=== PATIENT | female | born 1940 | race Hispanic/Latino ===

== ENCOUNTER → 2018-01-22 | Outpatient (CLI) | payer OTHER ==
[~2018-01-22] MED LIST: ACET-66 PO; AMLO1CAP12 PO; CITA10SO PO; FENO160T16 PO; VIT D PO
== END | disposition home or self-care (01) ==
LOC: RAH 08:35
PROVIDERS: ATTEND Internal Medicine
DX: Z12.31 Encounter for screening mammogram for malignant neoplasm of breast (principal)
CPT/HCPCS: 77067

== ENCOUNTER → 2018-10-18 | Outpatient (CLI) | payer OTHER | END | disposition home or self-care (01) | LOC: RAH 16:11 | PROVIDERS: ATTEND Internal Medicine | DX: M47.896 Other spondylosis, lumbar region (principal); I70.0 Atherosclerosis of aorta; M25.561 Pain in right knee | CPT/HCPCS: 72100; 73502 ==

== ENCOUNTER → 2020-02-28 | Outpatient (CLI) | payer OTHER ==
[~2020-02-28] MED LIST changes: +AMLO-104 PO; -AMLO1CAP12 PO
== END | disposition home or self-care (01) ==
LOC: RAH 10:50
PROVIDERS: ATTEND Internal Medicine Gastroenterology
DX: R10.9 Unspecified abdominal pain (principal); R11.0 Nausea
CPT/HCPCS: 78264; A9541

== ENCOUNTER → 2021-02-06 | Outpatient (CLI) | payer OTHER | END | disposition home or self-care (01) | LOC: RAH 09:07 | PROVIDERS: ATTEND Internal Medicine | DX: I71.4 Abdominal aortic aneurysm, without rupture (principal) | CPT/HCPCS: 76700 ==

== ENCOUNTER → 2021-12-18 | Outpatient (CLI) | payer OTHER | END | disposition home or self-care (01) | LOC: RAH 15:55 | PROVIDERS: ATTEND Nurse Practitioner Family | DX: M19.012 Primary osteoarthritis, left shoulder (principal); M85.812 Other specified disorders of bone density and structure, left shoulder; M79.89 Other specified soft tissue disorders | CPT/HCPCS: 73030 ==

== ENCOUNTER → 2022-03-06 | Outpatient (CLI) | payer OTHER | END | disposition home or self-care (01) | LOC: RAH 10:32 | PROVIDERS: ATTEND Internal Medicine | DX: N13.30 Unspecified hydronephrosis (principal); N28.1 Cyst of kidney, acquired; R33.8 Other retention of urine | CPT/HCPCS: 76770 ==

== ENCOUNTER → 2022-04-29 | Outpatient (CLI) | payer OTHER ==
[~2022-04-29] MED LIST changes: +ACET-2893 PO; +AEC81 PO; +AMLO1CAP87 PO; +ASCO500V11 IJ; +ATOR40TA69 PO; +CLOP75TA14 PO; +CYAN500T46 PO; +FERR159T2 PO; +SOLI5TAB6 PO; +VITA100C26 PO; +ZINC11TA PO
== END | disposition home or self-care (01) ==
LOC: RAH 10:58
PROVIDERS: ATTEND Internal Medicine
DX: N64.4 Mastodynia (principal); R92.1 Mammographic calcification found on diagnostic imaging of breast
CPT/HCPCS: 77066

== ENCOUNTER 2022-05-04 12:34 | Observation (INO) | payer OTHER ==
[~2022-05-04] VITALS: Ht 154.9 cm; Wt 52.4 kg
[~2022-05-04 12:34] MED LIST changes: -ACET-2893 PO; -AEC81 PO; -AMLO1CAP87 PO; -ASCO500V11 IJ; -ATOR40TA69 PO; -CLOP75TA14 PO; -CYAN500T46 PO; -FERR159T2 PO; -SOLI5TAB6 PO; -VITA100C26 PO; -ZINC11TA PO
[2022-05-04 13:00] LABS: BASOPHILS % (AUTO) 0.5 % (0.0-5.0); EOSINOPHILS % (AUTO) 0.3 % (0.0-8.0); HEMATOCRIT 38.3 % (36-48); LYMPHOCYTES % (AUTO) 24.7 % (21.0-51.0); MEAN CORPUSCULAR HEMOGLOBIN 29.3 pg (27.0-33.0); MEAN CORPUSCULAR HGB CONC 32.6 g/dL (32.0-36.0); MEAN CORPUSCULAR VOLUME 89.9 fL (79-99); MONOCYTES % (AUTO) 7.7 % (3.0-13.0); NEUTROPHILS % (AUTO) 66.5 % (40.0-77.0); PLATELET COUNT (AUTO) 249 K/uL (130-400); RED BLOOD CELL COUNT(AUTO) 4.26 MIL/uL (4.00-5.50); WHITE BLOOD COUNT (AUTO) 6.2 K/uL (4.8-10.8)
[2022-05-04 13:07] LABS: CREATININE 0.9 mg/dL (0.5-1.5); POTASSIUM 4.1 mmol/L (3.5-5.1)
[2022-05-04 13:11] LABS: ALBUMIN 4.2 g/dL (3.5-5.0); TOTAL PROTEIN, SERUM 8.6 g/dL (6.0-8.3)
[2022-05-04 13:13] LABS: INR 0.94 (0.85-1.15); PROTHROMBIN TIME 10.3 SEC (9.6-11.6)
[2022-05-04 13:14] LABS: PARTIAL THROMBOPLASTIN TIME 27.4 SEC (26.3-35.5)
[2022-05-04 13:17] LABS: APPEARANCE,URINE CLEAR (CLEAR); BILIRUBIN,URINE NEGATIVE (NEGATIVE); COLOR,URINE YELLOW (YELLOW); GLUCOSE, URINE (UA) NEGATIVE (NEGATIVE); KETONES,URINE NEGATIVE (NEGATIVE); LEUKOCYTE ESTERASE ,URINE NEGATIVE (NEGATIVE); NITRATE,URINE NEGATIVE (NEGATIVE); OCCULT BLOOD,URINE SMALL (NEGATIVE); PH,URINE 5.5 (5.0-8.0); PROTEIN,URINE NEGATIVE (NEGATIVE); UROBILINOGEN,URINE 0.2 mg/dL (0.2-1.0)
[2022-05-04 13:26] LABS: BACTERIA,URINE Rare /HPF (None Seen); WBC,URINE None Seen /HPF (0-1)
[2022-05-04 13:29] LABS: B-TYPE NATRIURETIC PEPTIDE 237 pg/mL (0-100)
[2022-05-04] MEDS ORDERED: HYDRALAZINE 20MG/ML VIAL IV PRN (15:30)
[2022-05-04] MEDS ORDERED: DEXTROSE 5 % AND 0.9 % NACL 1,000 ML IV SCH (15:30)
[2022-05-04] MEDS: PANTOPRAZOLE 40 MG/VIAL IVP SCH (15:49)
[2022-05-04 15:54] LABS: HEMOGLOBIN A1C 5.7 % (4.0-6.0)
[2022-05-04] MEDS ORDERED: IOHEXOL 350 MG/ML 100ML INFUS..BTL IV ONE (16:28)
[2022-05-04] MEDS ORDERED: ACET-2893 PO (16:43)
[2022-05-04] MEDS ORDERED: AMLO1CAP87 PO (16:47)
[2022-05-04] MEDS ORDERED: SOLI5TAB6 PO (16:47)
[2022-05-04] MEDS ORDERED: FERR159T2 PO (16:50)
[2022-05-04] MEDS ORDERED: CYAN500T46 PO (16:50)
[2022-05-04] MEDS ORDERED: ASCO500V11 IJ (16:50)
[2022-05-04] MEDS ORDERED: ZINC11TA PO (16:50)
[2022-05-04] MEDS ORDERED: VITA100C26 PO (16:50)
[2022-05-04] MEDS ORDERED: ASPIRIN 81MG CHEW TAB PO ONE (17:00)
[2022-05-04] MEDS ORDERED: ACETAMINOPHEN 325 MG TAB PO PRN (19:00)
[2022-05-04] MEDS: CITALOPRAM 20 MG TABLET PO SCH (20:58)
[2022-05-04] MEDS: OXYBUTYNIN CHLORIDE 5 MG TABLET PO SCH (20:58)
[2022-05-05 05:33] LABS: BASOPHILS % (AUTO) 0.6 % (0.0-5.0); EOSINOPHILS % (AUTO) 0.9 % (0.0-8.0); HEMATOCRIT 33.8 % (36-48); LYMPHOCYTES % (AUTO) 27.6 % (21.0-51.0); MEAN CORPUSCULAR HEMOGLOBIN 29.3 pg (27.0-33.0); MEAN CORPUSCULAR HGB CONC 32.5 g/dL (32.0-36.0); MEAN CORPUSCULAR VOLUME 90.1 fL (79-99); MONOCYTES % (AUTO) 11.6 % (3.0-13.0); NEUTROPHILS % (AUTO) 59.1 % (40.0-77.0); PLATELET COUNT (AUTO) 221 K/uL (130-400); RED BLOOD CELL COUNT(AUTO) 3.75 MIL/uL (4.00-5.50); RED CELL DISTRIBUTION WIDTH 13.2 % (11.0-15.5); WHITE BLOOD COUNT (AUTO) 4.6 K/uL (4.8-10.8)
[2022-05-05 05:47] LABS: ALBUMIN 3.2 g/dL (3.5-5.0); CREATININE 0.8 mg/dL (0.5-1.5); MAGNESIUM 2.1 mg/dL (1.80-2.40); POTASSIUM 4.3 mmol/L (3.5-5.1); TOTAL PROTEIN, SERUM 6.9 g/dL (6.0-8.3)
[2022-05-05] MEDS: ZINC CITRATE PO SCH (08:24)
[2022-05-05] MEDS: FERROUS SULFATE 27 MG PO SCH (08:24)
[2022-05-05] MEDS: VITAMIN E 45 MG PO SCH (08:24)
[2022-05-05] MEDS: OXYBUTYNIN CHLORIDE 5 MG TABLET PO SCH ×2 (08:24→20:30)
[2022-05-05] MEDS: Vitamin B Complex/Vit C/Folic Acid PO SCH (08:24)
[2022-05-05] MEDS: CYANOCOBALAMIN (VITAMIN B-12) 1,000 MCG TABLET PO SCH (08:25)
[2022-05-05] MEDS ORDERED: Vitamin B Complex/Vit C/Folic Acid PO SCH (09:00)
[2022-05-05 12:22] VITALS: BP 131/85
[2022-05-05] MEDS: ASPIRIN 81 MG EC TAB PO SCH (14:50)
[2022-05-05] MEDS: PANTOPRAZOLE 40 MG/VIAL IVP SCH (14:51)
[2022-05-05 15:35] VITALS: BP 138/63
[2022-05-05] MEDS: FAMOTIDINE 20MG TAB PO SCH (16:36)
[2022-05-05] MEDS: ACETAMINOPHEN 325 MG TAB PO PRN (19:41)
[2022-05-05 19:54] VITALS: BP 137/59
[2022-05-05] MEDS: CITALOPRAM 20 MG TABLET PO SCH (20:29)
[2022-05-05 23:00] VITALS: BP 132/75
[2022-05-06 04:56] VITALS: BP 121/56
[2022-05-06 06:28] LABS: BASOPHILS % (AUTO) 0.4 % (0.0-5.0); EOSINOPHILS % (AUTO) 0.8 % (0.0-8.0); HEMATOCRIT 32.8 % (36-48); LYMPHOCYTES % (AUTO) 26.7 % (21.0-51.0); MEAN CORPUSCULAR HEMOGLOBIN 28.8 pg (27.0-33.0); MEAN CORPUSCULAR VOLUME 89.9 fL (79-99); MONOCYTES % (AUTO) 9.1 % (3.0-13.0); NEUTROPHILS % (AUTO) 62.6 % (40.0-77.0); PLATELET COUNT (AUTO) 218 K/uL (130-400); RED BLOOD CELL COUNT(AUTO) 3.65 MIL/uL (4.00-5.50); RED CELL DISTRIBUTION WIDTH 12.8 % (11.0-15.5); WHITE BLOOD COUNT (AUTO) 5.3 K/uL (4.8-10.8)
[2022-05-06 06:45] LABS: ALBUMIN 3.1 g/dL (3.5-5.0); CREATININE 0.9 mg/dL (0.5-1.5); MAGNESIUM 2.2 mg/dL (1.80-2.40); POTASSIUM 3.8 mmol/L (3.5-5.1); TOTAL PROTEIN, SERUM 6.8 g/dL (6.0-8.3)
[2022-05-06 08:10] VITALS: BP 125/58
[2022-05-06] MEDS ORDERED: CLOPIDOGREL 75MG TAB PO SCH (09:00)
[2022-05-06] MEDS ORDERED: ATORVASTATIN 40 MG TABLET PO SCH (09:00)
[2022-05-06] MEDS ORDERED: KCL 20 MEQ ERTAB PO PRN (10:00)
[2022-05-06] MEDS ORDERED: POTASSIUM CHLORIDE 10% ELIXIR 20 MEQ/15 ML UDCUP PO PRN (10:00)
[2022-05-06] MEDS ORDERED: POTASSIUM CHLORIDE 20MEQ/100ML 100 ML IV PRN (10:00)
[2022-05-06] MEDS ORDERED: LIDOCAINE HCL-MPF 1% 2ML VIAL IV PRN (10:00)
[2022-05-06] MEDS: ASPIRIN 81 MG EC TAB PO SCH (10:09)
[2022-05-06] MEDS: ACETAMINOPHEN 325 MG TAB PO PRN (10:10)
[2022-05-06] MEDS: OXYBUTYNIN CHLORIDE 5 MG TABLET PO SCH (10:10)
[2022-05-06] MEDS: Vitamin B Complex/Vit C/Folic Acid PO SCH (10:11)
[2022-05-06] MEDS: CYANOCOBALAMIN (VITAMIN B-12) 1,000 MCG TABLET PO SCH (10:11)
[2022-05-06] MEDS: FAMOTIDINE 20MG TAB PO SCH (10:11)
[2022-05-06] MEDS: VITAMIN E 45 MG PO SCH (10:14)
[2022-05-06] MEDS: ZINC CITRATE PO SCH (10:15)
[2022-05-06] MEDS: FERROUS SULFATE 27 MG PO SCH (10:15)
[2022-05-06 11:16] VITALS: BP 135/57
[2022-05-06] MEDS ORDERED: CLOP75TA14 PO (11:20)
[2022-05-06] MEDS ORDERED: AEC81 PO (11:20)
[2022-05-06] MEDS ORDERED: ATOR40TA69 PO (11:20)
== END 2022-05-06 12:45 | disposition home or self-care (01) ==
LOC: EDH 12:34 → INTOOBSV 15:15 → EDHIP 15:15 → 2DH 05-05 12:11
PROVIDERS: ADMIT Internal Medicine; ATTEND Internal Medicine
DX: I63.9 Cerebral infarction, unspecified (principal); Z20.822 Contact with and (suspected) exposure to COVID-19; G45.9 Transient cerebral ischemic attack, unspecified; R29.702 NIHSS score 2; I10 Essential (primary) hypertension; G43.909 Migraine, unspecified, not intractable, without status migrainosus; J69.0 Pneumonitis due to inhalation of food and vomit; E78.00 Pure hypercholesterolemia, unspecified; R42 Dizziness and giddiness; G51.0 Bell's palsy; M06.9 Rheumatoid arthritis, unspecified; M19.90 Unspecified osteoarthritis, unspecified site; Z79.899 Other long term (current) drug therapy; Z86.73 Personal history of transient ischemic attack (TIA), and cerebral infarction without residual deficits; Z98.890 Other specified postprocedural states
CPT/HCPCS: 96374; 96361 ×2; 99285; 83036; 84443; 82550; 83721; 84484; 80053 ×3; 83880; 85025 ×3; 85610; 85730; 85651; 87804 ×2; 82948; 82607; 82746; 86140; 81001; 36415 ×3; 87635; 71045; 70450; 70496; 70498; 70551; 93005; 84145; 96376; 83735 ×2; 74230; 93306; 93356; 92522; 92610; 92611; 97161; C9113 ×2; Q9967; G0378 ×2

== ENCOUNTER 2022-07-02 20:31 | Emergency (ER) | payer OTHER ==
[~2022-07-02] VITALS: Ht 154.9 cm; Wt 54.9 kg
[~2022-07-02 20:31] MED LIST changes: +ACET-2893 PO; -ACET-66 PO; +AEC81 PO; -AMLO-104 PO; +AMLO1CAP87 PO; +ASCO500V11 IJ; +ATOR40TA69 PO; +CLOP75TA14 PO; +CYAN500T46 PO; -FENO160T16 PO; +FERR159T2 PO; +SOLI5TAB6 PO; -VIT D PO; +VITA100C26 PO; +ZINC11TA PO
[2022-07-02 21:32] LABS: BASOPHILS % (AUTO) 0.4 % (0.0-5.0); EOSINOPHILS % (AUTO) 0.6 % (0.0-8.0); HEMATOCRIT 33.1 % (36-48); MEAN CORPUSCULAR HEMOGLOBIN 29.9 pg (27.0-33.0); MEAN CORPUSCULAR HGB CONC 33.5 g/dL (32.0-36.0); MEAN CORPUSCULAR VOLUME 89.2 fL (79-99); MONOCYTES % (AUTO) 8.1 % (3.0-13.0); NEUTROPHILS % (AUTO) 59.5 % (40.0-77.0); PLATELET COUNT (AUTO) 214 K/uL (130-400); RED BLOOD CELL COUNT(AUTO) 3.71 MIL/uL (4.00-5.50); RED CELL DISTRIBUTION WIDTH 12.8 % (11.0-15.5); WHITE BLOOD COUNT (AUTO) 5.2 K/uL (4.8-10.8)
[2022-07-02 21:44] LABS: CREATININE 0.9 mg/dL (0.5-1.5); POTASSIUM 4.3 mmol/L (3.5-5.1)
[2022-07-02 21:49] LABS: ALBUMIN 3.8 g/dL (3.5-5.0); TOTAL PROTEIN, SERUM 7.8 g/dL (6.0-8.3)
[2022-07-02] MEDS ORDERED: MAGNESIUM CITRATE 296 ML SOLUTION ONE (23:44)
[2022-07-02 23:54] LABS: APPEARANCE,URINE CLEAR (CLEAR); BILIRUBIN,URINE NEGATIVE (NEGATIVE); COLOR,URINE YELLOW (YELLOW); GLUCOSE, URINE (UA) NEGATIVE (NEGATIVE); KETONES,URINE NEGATIVE (NEGATIVE); LEUKOCYTE ESTERASE ,URINE NEGATIVE (NEGATIVE); NITRATE,URINE NEGATIVE (NEGATIVE); OCCULT BLOOD,URINE SMALL (NEGATIVE); PROTEIN,URINE NEGATIVE (NEGATIVE); UROBILINOGEN,URINE 0.2 mg/dL (0.2-1.0)
[2022-07-02 23:59] VITALS: BP 151/73
[2022-07-03 00:16] LABS: BACTERIA,URINE None Seen /HPF (None Seen); RBC,URINE 0-1 /HPF (0-1); SQUAMOUS EPITHELIAL CELL,UR Rare /HPF (0-2); WBC,URINE None Seen /HPF (0-1)
== END 2022-07-03 00:05 | disposition home or self-care (01) ==
LOC: EDH 20:31
DX: K59.00 Constipation, unspecified (principal); E78.00 Pure hypercholesterolemia, unspecified; I10 Essential (primary) hypertension; M81.0 Age-related osteoporosis without current pathological fracture; M19.90 Unspecified osteoarthritis, unspecified site
CPT/HCPCS: 36415; 74176; 80053; 81001; 83690; 85025

== ENCOUNTER → 2023-07-16 | Outpatient (CLI) | payer MEDICARE ==
[~2023-07-16] MED LIST changes: +CLOP-31 PO; -CLOP75TA14 PO
== END | disposition home or self-care (01) ==
LOC: RAH 11:03
PROVIDERS: ATTEND Internal Medicine
DX: Z12.31 Encounter for screening mammogram for malignant neoplasm of breast (principal)
CPT/HCPCS: 77067

== ENCOUNTER → 2023-12-31 | Outpatient (CLI) | payer MEDICARE | END | disposition home or self-care (01) | LOC: RAH 11:12 | PROVIDERS: ATTEND Internal Medicine | DX: N64.4 Mastodynia (principal); R92.333 Mammographic heterogeneous density, bilateral breasts | CPT/HCPCS: 77066 ==

== ENCOUNTER → 2024-03-23 | Outpatient (CLI) | payer MEDICARE | END | disposition home or self-care (01) | LOC: SHCH 14:59 | PROVIDERS: ATTEND Internal Medicine Cardiovascular Disease | DX: I08.3 Combined rheumatic disorders of mitral, aortic and tricuspid valves (principal); R07.9 Chest pain, unspecified; R01.1 Cardiac murmur, unspecified; I20.9 Angina pectoris, unspecified | CPT/HCPCS: 93306; 93356 ==

== ENCOUNTER → 2024-04-13 | Outpatient (CLI) | payer MEDICARE ==
[2024-04-13 14:32] LABS: CREATININE 1.2 mg/dL (0.5-1.0)
== END | disposition home or self-care (01) ==
LOC: LAB 13:23
PROVIDERS: ATTEND Nurse Practitioner
DX: H90.5 Unspecified sensorineural hearing loss (principal)
CPT/HCPCS: 36415; 82565; 84520

== ENCOUNTER → 2024-05-10 | Outpatient (CLI) | payer MEDICARE ==
[~2024-05-10] MED LIST changes: +GADOTERATE MEGLUMINE 10 MMOL/20 ML VIAL IV ONE
== END | disposition home or self-care (01) ==
LOC: RAH 10:39
PROVIDERS: ATTEND Orthopaedic Surgery
DX: H90.5 Unspecified sensorineural hearing loss (principal)
CPT/HCPCS: 70553; A9575

== ENCOUNTER 2025-08-03 14:51 | Emergency (ER) | payer OTHER ==
[~2025-08-03] VITALS: Ht 154.9 cm; Wt 50.8 kg
[~2025-08-03 14:51] MED LIST changes: -ACET-2893 PO; +ACET-3797 PO; -GADOTERATE MEGLUMINE 10 MMOL/20 ML VIAL IV ONE
--- NOTE | 2025-08-03 15:03 | ERN ---
ED Note History of Present Illness Stated Complaint: CHEST PAIN Chief Complaint: Chest Pain Time Seen by MD: 14:54 Dictation: PATIENT IS AN 84-YEAR-OLD FEMALE HERE WITH COMPLAINTS OF LEFT LATERAL CHEST WALL PAIN THAT RADIATES TO THE SUBSTERNAL AREA OF HER CHEST ONSET FOR A LONG TIME. SHE HAS NO NAUSEA NO VOMITING NO JAW PAIN NO ARM PAIN NO BACK PAIN. SHE STATES SHE WAS SUPPOSED TO HAVE A STRESS TEST LAST YEAR BY DR. GARDNER HOWEVER WAS TOO SCARED OF THE CONTRAST. SHE IS ALSO SCHEDULED FOR FUTURE CT OF HER CHEST HOWEVER SHE OPTED TO COME IN TODAY FOR FURTHER EXAMINATION AND TREATMENT. Allergies: Coded Allergies: codeine (Verified Adverse Reaction, Unknown, NAUSEA/VOMITING, 05/04/22) Home Meds Active Scripts Clopidogrel Bisulfate (Plavix) 75 Mg Tablet, 75 MG PO DAILY for 21 Days, #21 TAB Prov:TERESITA CADET NP 05/06/22 Atorvastatin Calcium (LIPITOR) 40 Mg Tablet, 40 MG PO DAILY for 30 Days, #30 TAB Prov:TERESITA CADET NP 05/06/22 Aspirin (ASPIRIN 81 MG ECTAB) 81 Mg Ectab, 81 MG PO DAILY for 30 Days, #30 TAB.EC Prov:TERESITA CADET NP 05/06/22 Reported Medications Ferrous Sulfate, Dried (Iron) 159 Mg Tablet.er, 27 MG PO DAILY, TAB 05/04/22 Zinc Citrate (Zinc) 11 Mg Tab.chew, 40 MG PO DAILY, TAB.CHEW 05/04/22 Cyanocobalamin (Vitamin B-12) (B-12) 500 Mcg Tablet, 500 MCG PO DAILY, TAB 05/04/22 Vitamin E (Dl,Tocopheryl Acet) (Vitamin E) 45 Mg Capsule, 45 MG PO DAILY, CAP 05/04/22 Ascorbic Acid (Ascorbic Acid) 500 Mg/1 Ml Vial, 1000 MG IJ DAILY, VIAL 05/04/22 Solifenacin Succinate (Solifenacin Succinate) 5 Mg Tablet, 5 MG PO DAILY, TAB 05/04/22 Amlodipine Besylate/Benazepril (Amlodipine-Benazepril 2.5-10) 1 Each Capsule, 1 EACH PO DAILY, CAP 05/04/22 Acetaminophen (Acetaminophen ER) 650 Mg Tablet.er, 650 MG PO Q4PRN PRN for PAIN LEVEL 1 TO 3, TAB 6/26/22 Citalopram Hydrobromide (Citalopram HBr) 10 Mg/5 Ml Solution, 10 MG PO HS, ML 01/16/17 Past Medical History Past Medical History: Arthritis, High Cholesterol, Hypertension Additional Past Medical Hx: OSTEOPOROSIS Surgical History: None History: Not Applicable RN Note Reviewed/Agreed w/PFSH: Yes Review of System Dictation CONSTITUTIONAL: NEGATIVE EXCEPT FOR HPI HEAD/FACE: NEGATIVE EXCEPT FOR HPI EENT: NEGATIVE EXCEPT FOR HPI RESPIRATORY: NEGATIVE EXCEPT FOR HPI CHRONIC LEFT CHEST PAIN THAT RADIATES SUBSTERNALLY GASTROINTESTINAL/ABDOMINAL: NEGATIVE EXCEPT FOR HPI GENITOURINARY: NEGATIVE EXCEPT FOR HPI MUSCULOSKELETAL: NEGATIVE EXCEPT FOR HPI INTEGUMENTARY: NEGATIVE EXCEPT FOR HPI NEUROLOGICAL/PSYCH: NEGATIVE EXCEPT FOR HPI HEMATOLOGIC/LYMPHATIC: NEGATIVE EXCEPT FOR HPI ALL SYSTEMS NEGATIVE, EXCEPT NOTED ABOVE. 13 POINT REVIEW OF SYSTEMS ASSESSED AND ALL NEGATIVE EXCEPT FOR ABOVE. Initial Vital Sign VS Vital Signs Date Time Temp Pulse Resp B/P (MAP) Pulse Ox O2 Delivery O2 Flow Rate FiO2 08/03/25 14:53 98.1 72 16 161/55 98 Room Air 0 08/03/25 15:44 21 Physical Exam Dictation VITAL SIGNS REVIEWED GENERAL APPEARANCE: ALERT, ORIENTED X 3, MILD/DEBILITATED HEAD AND FACE: NON-TRAUMATIC. EYES: PERRL, PINK CONJUNCTIVAS, EYELID NO TRAUMA, ANTERIOR CHAMBER WITH ARCUS SENILIS. EARS: PINNAS INTACT AND NO SIGNS OF TRAUMA OR ERYTHEMA EAR CANALS CLEAR AND NO DISCHARGE TM NO ERYTHEMA NOSE: NO DISCHARGE, NO BLEEDING. OROPHARYNX: MOUTH NORMAL, TONGUE PINK, PHARYNX CLEAR,NO ERYTHEMA, TONSILS NO EXUDATES, NO ABSCESSES NOTED, MUCOUS MEMBRANE MOIST NECK: SUPPLE, NON-TENDER, NO THYROMEGALY, NO MASSES, NO JVD, NO BRUITS BREAST:DEFERRED CHEST: LEFT LATERAL CHEST WALL TENDERNESS WITH PALPATION TENDERNESS, NO CREPITU S, NO PARADOXICAL MOVEMENT, NO RETRACTIONS LUNGS:CLEAR, WELL-VENTILATED, SYMMETRIC, NO RALES, NO WHEEZING, NO RHONCHI, NO STRIDOR, GOOD BREATH SOUNDS BILATERALLY HEART: REGULAR RATE, REGULAR RHYTHM, NO MURMUR, NO GALLOPS VASCULAR: NO PERIPHERAL EDEMA, ABDOMEN: SOFT, POSITIVE BOWEL SOUNDS, NONDISTENDED, NO GUARDING, NONTENDER, NO REBOUND, NO MASSES NO HEPATOMEGALY, NO SPLENOMEGALY, NO SMITH'S SIGN, NO HERNIAS. RECTAL: DEFERRED GENITAL: DEFERRED NEUROLOGICAL: NORMAL SPEECH, MOTOR FUNCTION INTACT, SENSORY FUNCTION INTACT MUSCULOSKELETAL: NECK NONTENDER, FULL RANGE OF MOTION, BACK NONTENDER, FULL RANGE OF MOTION, EXTREMITIES: NONTENDER, FULL RANGE OF MOTION SKIN: COLOR PINK, DRY, NO TURGOR, NO RASH, NO LACERATIONS, NO ABRASIONS, NO CONTUSIONS. LYMPHATIC: DEFERRED Results (Laboratory/Radiology) Laboratory/Radiology Laboratory Tests Test 08/03/25 15:00 08/03/25 15:22 08/03/25 17:31 Urine Color LIGHT-YELLOW (YELLOW) Urine Appearance CLEAR (CLEAR) Urine pH 5.0 (5.0-8.0) Urine Specific [place] 1.012 (1.001-1.031) Urine Protein NEGATIVE mg/dL (NEGATIVE) Urine Glucose (UA) NEGATIVE mg/dL (NEGATIVE) Urine Ketones NEGATIVE mg/dL (NEGATIVE) Urine Occult Blood SMALL (NEGATIVE) H Urine Nitrate NEGATIVE (NEGATIVE) Urine Bilirubin NEGATIVE mg/dL (NEGATIVE) Urine Urobilinogen 0.2 mg/dL (0.2-1.0) Urine Leukocyte Esterase NEGATIVE Marguerite/uL Urine RBC 6-10 /HPF (0-1) H Urine WBC 0-1 /HPF (0-1) Urine Squamous Epithelial Cells RARE /HPF (0-2) Urine Bacteria RARE /HPF (None Seen) Urine Hyaline Casts 0-1 /LPF (0-1 /LPF) White Blood Count 6.3 K/uL (4.8-10.8) Red Blood Count 3.51 MIL/uL (4.00-5.50) L Hemoglobin 10.6 g/dL (12.0-16.0) L Hematocrit 31.7 % (36-48) L Mean Corpuscular Volume 90.3 fL (79-99) Mean Corpuscular Hemoglobin 30.2 pg (27.0-33.0) Mean Corpuscular Hemoglobin Concent 33.4 g/dL (32.0-36.0) Red Cell Distribution Width 14.4 % (11.0-15.5) Platelet Count 168 K/uL (130-400) Mean Platelet Volume 9.6 fL (7.5-10.5) Immature Granulocyte % (Auto) 0.3 % (0-1) Neutrophils (%) (Auto) 74.0 % (40.0-77.0) Lymphocytes (%) (Auto) 19.2 % (21.0-51.0) L Monocytes (%) (Auto) 6.0 % (3.0-13.0) Eosinophils (%) (Auto) 0.2 % (0.0-8.0) Basophils (%) (Auto) 0.3 % (0.0-5.0) Neutrophils # (Auto) 4.7 K/uL (1.8-7.7) Lymphocytes # (Auto) 1.2 K/uL (1.0-4.8) Monocytes # (Auto) 0.4 K/uL (0.1-1.0) Eosinophils # (Auto) 0.01 K/uL (0.00-0.70) Basophils # (Auto) 0.02 K/uL (0.00-0.20) Absolute Immature Granulocyte (auto 0.02 K/uL (0-1) Nucleated Red Blood Cells 0.0 % (0.0-0.19) Sodium Level 135 mmol/L (136-145) L Potassium Level 3.8 mmol/L (3.5-5.1) Chloride Level 102 mmol/L (101-111) Carbon Dioxide Level 24 mmol/L (21-32) Blood Urea Nitrogen 35 mg/dL (7-18) H Creatinine 1.1 mg/dL (0.5-1.0) H Glomerular Filtration Rate Calc 49 mL/min (>90) Random Glucose 101 mg/dL (70-105) Total Calcium 8.8 mg/dL (8.5-10.1) Troponin I High Sensitivity 7 ng/L (4-50) 7 ng/L (4-50) CHEST 1VW REASON: CHEST PAIN COMPARISON: Prior chest from 05/04/2022 is available. FINDINGS: Single view of the chest was obtained. Lungs are clear. Heart size is normal. There is uncoiling atherosclerotic change of thoracic aorta. There is no pulmonary vascular congestion. Mediastinum and bony thorax appear unremarkable. IMPRESSION: 1. Unchanged from prior study with no evidence of airspace consolidation or pulmonary venous congestion.. Labs Reviewed?: Yes EKG: (+) NSR EKG Comment: EKG NORMAL SINUS RHYTHM/HEART RATE 71/AXIS NORMAL/NO ECTOPY 1845/SECOND EKG NORMAL SINUS RHYTHM/HEART RATE 60/AXIS NORMAL/NO ECTOPY REPEAT HIGH SENSITIVITY TROPONIN IS SEVEN. HEART SCORE IS THREE ED Course ED Course Orders Procedure Category Date Status Time Vital Signs Per CPOE 08/03/25 Transmitted Routine 14:55 Chest 1vw RAD 08/03/25 Resulted 14:55 12 Lead Ekg Tracing- EKG 08/03/25 Complete Technical 14:55 Oxygen By Nc/Pulse Ox CPOE 08/03/25 Transmitted 14:55 Maintain Iv CPOE 08/03/25 Transmitted 14:55 Iv Insertion CPOE 08/03/25 Transmitted 14:55 Cardiac Monitoring CPOE 08/03/25 Transmitted 14:55 Pulse Oximetry With CPOE 08/03/25 Transmitted Vs And Prn 14:55 Cbc With Differential LAB 08/03/25 Complete 14:55 Activity: Br W/Brp CPOE 08/03/25 Transmitted With Assist 14:55 Troponin I High LAB 08/03/25 Complete Sensitivity 14:55 Urinalysis Profile LAB 08/03/25 Complete 14:55 Basic Metabolic Panel LAB 08/03/25 Complete 14:55 Aspirin 325mg Tab PHA 08/03/25 Complete (Aspirin 325mg Tab) 15:00 12 Lead Ekg Tracing- EKG 08/03/25 Logged Technical 17:06 Troponin I High LAB 08/03/25 Complete Sensitivity 17:06 Current Medications Medications (Trade) Dose Ordered Sig/Kunal Route PRN Reason Start Time Stop Time Status Last Admin Dose Admin Aspirin (Aspirin 325mg Tab) 325 mg ONCE ONCE PO 08/03/25 15:00 08/03/25 15:03 DC 08/03/25 15:34 Vital Signs Date Time Temp Pulse Resp B/P (MAP) Pulse Ox O2 Delivery O2 Flow Rate FiO2 08/03/25 15:44 98.4 64 24 146/60 100 Room Air* 0 21 08/03/25 14:53 98.1 72 16 161/55 98 Room Air 0 1845/NO PAIN AT THIS TIME. PATIENT WE WILL BE DISCHARGED HOME TO FOLLOW UP WITH HER PRIMARY CARE DOCTOR. HEART Score Response (Comments) Value History: Low suspicion (0) 0 Age: > 65yrs (+2) 2 Risk Factors: 1-2 risk factors (+1) 1 Initial Troponin: Normal limit (0) 0 Total 3 Medical Decision Making MDM MDM: DIFFERENTIAL DIAGNOSIS: ACS/AMI/ELECTROLYTE IMBALANCE/DEHYDRATION/PNEUMONIA/BRONCHITIS/ATYPICAL CHEST PAIN RATIONALE: TESTS CONSIDERED AND ORDERED SECONDARY TO SHARED DECISION MAKING INCLUDE: EKG/LABS/RADIOLOGY PREVIOUS OUTSIDE RECORDS REVIEWED: OLD ER VISITS. RISK OF COMPLICATION AND/OR MORBIDITY OR MORTALITY OF PATIENT MANAGEMENT: NONE MEDICATIONS-PER MEDICATION RECONCILIATION NEED FOR HOSPITALIZATION: PATIENT DOES NOT MEET CRITERIA FOR HOSPITALIZATION. NONE NEED FOR EMERGENCY MAJOR/MINOR SURGERY: NO THERE ARE NO SOCIAL CONCERNS WITH THIS PATIENT. PRESCRIPTION DRUG MANAGEMENT NONE PRESCRIPTIONS WILL INCLUDE SYMPTOMATIC CARE PATIENT'S PRIOR EXTERNAL MEDICAL RECORDS FROM OTHER ER VISITS WERE REVIEWED BY ME INDICATED. PRIOR TESTING AND RESULTS FROM PREVIOUS VISITS WERE REVIEWED. PRIOR TESTS WERE TAKEN INTO ACCOUNT WITH MEDICAL DECISION MAKING AND RESOURCE UTILIZATION, INDEPENDENT HISTORIAN/HISTORIANS WERE USED TO OBTAIN COMPLETE MEDICAL HISTORY. I INDEPENDENTLY INTERPRETED THE TEST THAT WERE PERFORMED, RESULTS WERE REVIEWED BY ME AND CONSIDERED FINDINGS ON RADIOLOGY IF ORDERED. MEDICAL MANAGEMENT AND EXAMINATION INTERPRETATION DISCUSSIONS WERE HAD BY ME WITH OTHER QUALIFIED HEALTHCARE PROFESSIONALS INDICATED FOR THE PATIENT'S CARE. DX & DISP Disposition: Discharge Departure Impression: Primary Impression: Atypical chest pain Additional Impressions: Chronic anemia, Stage 3 chronic kidney disease, Dehydration Condition: Stable Referrals: TERESA MCMANUS MD (PCP) Time of Disposition: 18:48 I have reviewed the case, and I agree with, Diagnosis and Plan JUAN NIXON NP Aug 03, 2025 15:03
--- NOTE | 2025-08-03 15:15 | HMCIMG ---
CHEST 1VW REASON: CHEST PAIN COMPARISON: Prior chest from 05/04/2022 is available. FINDINGS: Single view of the chest was obtained. Lungs are clear. Heart size is normal. There is uncoiling atherosclerotic change of thoracic aorta. There is no pulmonary vascular congestion. Mediastinum and bony thorax appear unremarkable. IMPRESSION: 1. Unchanged from prior study with no evidence of airspace consolidation or pulmonary venous congestion..
[2025-08-03 15:28] LABS: IMMATURE GRANULOCYTE ABSOLUTE 0.02 K/uL (0-1); NUCLEATED RED BLOOD CELLS 0.0 % (0.0-0.19); PLATELET COUNT (AUTO) 168 K/uL (130-400); RED BLOOD CELL COUNT(AUTO) 3.51 MIL/uL (4.00-5.50); RED CELL DISTRIBUTION WIDTH 14.4 % (11.0-15.5); WHITE BLOOD COUNT (AUTO) 6.3 K/uL (4.8-10.8)
[2025-08-03] MEDS: ASPIRIN 325MG TAB PO ONE (15:34)
[2025-08-03 15:40] LABS: CREATININE 1.1 mg/dL (0.5-1.0); GLOMERULAR FILTR. RATE CALC 49.0 mL/min (>90); GLUCOSE,RANDOM 101.0 mg/dL (70-105); SODIUM SERUM 135.0 mmol/L (136-145); UREA NITROGEN, BLOOD 35.0 mg/dL (7-18)
[2025-08-03 15:53] LABS: APPEARANCE,URINE CLEAR (CLEAR); GLUCOSE, URINE (UA) NEGATIVE (NEGATIVE); LEUKOCYTE ESTERASE ,URINE NEGATIVE Leu/uL (NEGATIVE); NITRATE,URINE NEGATIVE (NEGATIVE); OCCULT BLOOD,URINE SMALL (NEGATIVE)
[2025-08-03 16:03] LABS: ADD UA MICROSCOPIC YES
[2025-08-03 16:04] LABS: HYALINE CASTS, URINE 0-1 /LPF (0-1 /LPF); SQUAMOUS EPITHELIAL CELL,UR RARE /HPF (0-2)
--- NOTE | 2025-08-03 18:44 | EKG ---
[facility] Test Date: 2025-08-03 Test Time: 14:52:25 Pat Name: RICHAR BLAIR Department: [facility] Room: Gender: F Filler Room Attendant: [id number] : 1940 Requested By: ELVER HOROWITZ Order Number: [id number] Reading MD: Kelsey Rob Measurements Intervals [place] Rate: 71 P: 50 VA: 123 QRS: 34 QRSD: 94 T: 71 QT: 378 QTc: 410 Interpretive Statements Sinus rhythm Compared to ECG 05/04/2022 13:13:47 Incomplete right bundle-branch block no longer present Electronically Signed On 08-04-2025 08:29:54 CDT by Kelsey Rob Please click the below link to view image of tracing.
[2025-08-03 18:58] VITALS: BP 137/62; PULSE 60; RESP 24; TEMP 98.4; O2SAT 98
--- NOTE | 2025-08-03 19:32 | EKG ---
[facility] Test Date: 2025-08-03 Test Time: 18:30:47 Pat Name: RICHAR BLAIR Department: [facility] Room: Gender: F Buckle Inspector: [id number] : 1940 Requested By: JUAN NIXON Order Number: [id number] Reading MD: Kelsey oRb Measurements Intervals [place] Rate: 60 P: 43 ID: [id number] QRS: -2 QRSD: 93 T: 53 QT: 418 QTc: 419 Interpretive Statements Sinus rhythm Compared to ECG 08/03/2025 14:52:25 No significant changes Electronically Signed On 08-04-2025 08:29:37 CDT by Kelsey Rob Please click the below link to view image of tracing.
== END 2025-08-03 19:03 | disposition home or self-care (01) ==
LOC: EDH 14:51
DX: R07.89 Other chest pain (principal); I12.9 Hypertensive chronic kidney disease with stage 1 through stage 4 chronic kidney disease, or unspecified chronic kidney disease; N18.30 Chronic kidney disease, stage 3 unspecified; D64.1 Secondary sideroblastic anemia due to disease; E86.0 Dehydration; E78.00 Pure hypercholesterolemia, unspecified; M19.90 Unspecified osteoarthritis, unspecified site; Z79.02 Long term (current) use of antithrombotics/antiplatelets; Z79.82 Long term (current) use of aspirin; Z79.899 Other long term (current) drug therapy; Z88.5 Allergy status to narcotic agent
CPT/HCPCS: 36415; 71045; 80048; 81001; 84484; 85025; 93005; 99285